=== PATIENT | male | born 1965 | race Two or more races ===

== ENCOUNTER 2018-12-07 00:02 | Emergency (ER) | payer OTHER ==
[~2018-12-07] VITALS: Ht 193 cm; Wt 115.7 kg
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
[2018-12-07] MEDS ORDERED: HYDROCODONE/APAP 5/325MG 1 EACH TABLET ONE (00:27)
[2018-12-07] MEDS ORDERED: HYDROCODONE/APAP 5/325MG 1 EACH TABLET PO ONE (00:30)
--- NOTE | 2018-12-07 00:33 | NUR ---
XRAY IN PROGRESS AT THE BEDSIDE.
[2018-12-07] MEDS ORDERED: LIDOCAINE /MPF 1% VIAL 5 ML VIAL ONE (00:51)
[2018-12-07] MEDS ORDERED: BUPIVACAINE 0.5 % PF 150 MG/30 ML VIAL ONE (00:51)
--- NOTE | 2018-12-07 00:51 | NUR ---
PT'S IS AT THE BEDSIDE.
--- NOTE | 2018-12-07 00:52 | NUR ---
DR. RASHID IS AT THE [facility] [employer] BLOCK
--- NOTE | 2018-12-07 00:56 | NUR ---
JAVIER KUNZ IS AT THE BEDSIDE.
[2018-12-07] MEDS ORDERED: LIDOCAINE 1% INJ 50 ML MDV IJ ONE (01:00)
[2018-12-07] MEDS ORDERED: BUPIVACAINE 0.25% 75 MG/30 ML VIAL IJ ONE (01:00)
--- NOTE | 2018-12-07 01:10 | NUR ---
PT'S RT THUMB WAS REDUCED. XRAY ORDERED FOR COMPARISON.
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
[2018-12-07 01:36] VITALS: BP 141/88
== END 2018-12-07 01:36 | disposition home or self-care (01) ==
LOC: ER 00:05
DX: S62.511A Displaced fracture of proximal phalanx of right thumb, initial encounter for closed fracture (principal); S70.02XA Contusion of left hip, initial encounter; I10 Essential (primary) hypertension; I25.2 Old myocardial infarction; Z88.8 Allergy status to other drugs, medicaments and biological substances; Z98.890 Other specified postprocedural states; V49.49XA Driver injured in collision with other motor vehicles in traffic accident, initial encounter; Y93.89 Activity, other specified; Y92.410 Unspecified street and highway as the place of occurrence of the external cause; Y99.8 Other external cause status
CPT/HCPCS: 73130-TC; 73502; J3490